=== PATIENT | female | born 1995 | race Caucasian/White ===

== ENCOUNTER 2017-08-26 18:31 | Emergency (ER) | payer MEDICAID, OTHER ==
[2017-08-26 18:39] VITALS: BP 118/85
--- NOTE | 2017-08-26 18:49 | ED Physician Documentation ---
PD HPI HEENT FB - Chief complaint Chief Complaint: Heent - History obtained from History obtained from: Patient - History of Present Illness Timing - onset: Other (About a month ago she developed a sore in her nares, it has spread since then to the left ear. 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 : None HEENT: None Psych: None Musculoskeletal: None Derm: None - Past Surgical History Past Surgical History: No - Present Medications Home Medications: Ambulatory Orders Medication Instructions Recorded Confirmed HYDROcod/ACETAM 5/325 [Novice 5/325] 1 - 2 ea PO Q6H PRN #7 tablet 08/26/17 Sulfamethoxazole/Trimethoprim 1 each PO BID 10 Days tablet 08/26/17 [Sulfamethoxazole-Tmp Ds Tablet] - Allergies Allergies/Adverse Reactions: Allergies Allergy/AdvReac Type Severity Reaction Status Date / Time No Known Drug Allergies Allergy Verified 09/03/15 17:38 - Social History Does the pt smoke?: Yes Smoking Status: Current every day smoker Does the pt drink ETOH?: No Does the pt have substance abuse?: Yes - Immunizations Immunizations are current?: Yes - POLST Patient has POLST: No PD ED PE NORMAL - Vitals Vital signs reviewed: Yes - General General: Alert and oriented X 3, No acute distress - HEENT HEENT: Other (There is a small sore on the left nares internally, the bulk of the external part of the left ear is kind of denuded with some purulent drainage , no lymphadenopathy.) - Neck Neck: Supple, no meningeal sign, No bony TTP, No adenopathy - Neuro Neuro: Alert and oriented X 3, Normal speech - Psych Psych: Normal mood, Normal affect Results - Vitals Vitals: Vital Signs - 24 hr 08/26/17 18:34 Temperature 37.4 C Heart Rate 106 H Respiratory 16 Rate Blood Pressure 118/85 H O2 Saturation 100 Oxygen O2 Source Room air - Labs Labs: Laboratory Tests 08/26/17 18:52 Urine Color YELLOW Urine Clarity CLOUDY Urine pH 7.0 Ur Specific [place] 1.020 Urine Protein NEGATIVE Urine Glucose (UA) NEGATIVE Urine Ketones NEGATIVE Urine Occult Blood NEGATIVE Urine Nitrite NEGATIVE Urine Bilirubin NEGATIVE Urine Urobilinogen 0.2 (NORMAL) Ur Leukocyte Esterase SMALL H Ur Microscopic Review INDICATED Urine Culture Comments Not Reportable Urine HCG, Qual NEGATIVE Departure - Departure Disposition: 01 Home, Self Care Clinical Impression: Facial cellulitis Condition: Good Record reviewed to determine appropriate education?: Yes Instructions: Cellulitis Dc Prescriptions: HYDROcod/ACETAM 5/325 [Novice 5/325] 1 - 2 ea PO Q6H PRN #7 tablet PRN Reason: Pain Sulfamethoxazole/Trimethoprim [Sulfamethoxazole-Tmp Ds Tablet] 1 each PO BID 10 Days tablet Comments: We are performing a wound culture, the results should be done in 48-72 hours. If antibiotic change is necessary we will call you. Return if worse in the meantime, especially if you develop increased pain, fevers, cannot keep down the medication. Otherwise follow-up with your physician in approximately 2-3 days[address] not drink or drive while taking narcotic pain medication. Note that many narcotic pain relievers also contain Tylenol/acetaminophen. Please ensure that your total dose of acetaminophen from all sources does not exceed 3 g (3000 mg) per day. You may get constipated while on this medication. Take a stool softener such as Colace twice a day while you are on it. Also add an [id number]-zyzapgm laxative such as senna or MiraLAX on any day that you do not have a bowel movement. If you received a narcotic pain medication or sedative while in the emergency department, do not drive for the next 24 hours.
[2017-08-26 18:56] LABS: BILIRUBIN,URINE NEGATIVE (NEGATIVE); GLUCOSE, URINE (UA) NEGATIVE (NEGATIVE); KETONES,URINE (UA) NEGATIVE (NEGATIVE); LEUKOCYTE ESTERASE, URINE SMALL (NEGATIVE); NITRITE,URINE NEGATIVE (NEGATIVE); OCCULT BLOOD,URINE NEGATIVE (NEGATIVE); PROTEIN,URINE NEGATIVE (NEGATIVE); UROBILINOGEN,URINE 0.2 (NORMAL) E.U./dL (NORMAL)
[2017-08-26 19:01] LABS: CLARITY,URINE CLOUDY (CLEAR)
[2017-08-26 19:02] LABS: HCG UR QUAL NEGATIVE
[2017-08-26 19:21] LABS: AMORPHOUS SEDIMENT,UR Marked /LPF; BACTERIA,URINE Rare /HPF (None Seen); RBC,URINE None Seen /HPF (0-5); SQUAMOUS EPITHELIAL CELL,UR MANY Squamous (<= Few)
== END 2017-08-26 19:11 | disposition home or self-care (01) ==
LOC: ED 18:31
DX: L03.211 Cellulitis of face (principal); F17.200 Nicotine dependence, unspecified, uncomplicated
CPT/HCPCS: 81001; 81003; 81025; 87070; 87086; 87205; 99283

== ENCOUNTER 2017-10-22 12:12 | Emergency (ER) | payer MEDICAID ==
--- NOTE | 2017-10-22 14:33 | ED Physician Documentation ---
PD HPI SKIN - Stated complaint Stated Complaint: Wound check - Chief complaint Chief Complaint: General - History obtained from History obtained from: Patient - History of Present Illness Timing - duration: Weeks (1) Timing - details: Gradual onset Location: Face Quality / character: Painful, Discolored Similar symptoms before: Diagnosis (Staph infection) - Additional information Additional information: The patient is a 21-year-old female who presents with a sore on the left corner of her mouth stating, "I think it's Staph again." She first noticed the sore one week ago and has persisted since that time. 2 months ago she was treated with trimethoprim/sulfamethoxazole for infection involving her nares and left external ear, and a culture subsequently grew methicillin sensitive staph aureus. She denies fever, sore throat, or cough. 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 : None HEENT: None Psych: None Musculoskeletal: None Derm: None - Past Surgical History Past Surgical History: No - Present Medications Home Medications: Ambulatory Orders Medication Instructions Recorded Confirmed Mupirocin 22 gm TP BID #1 tube 10/22/17 - Allergies Allergies/Adverse Reactions: Allergies Allergy/AdvReac Type Severity Reaction Status Date / Time No Known Drug Allergies Allergy Verified 10/22/17 12:16 - Social History Does the pt smoke?: Yes Smoking Status: Current every day smoker Does the pt drink ETOH?: No Does the pt have substance abuse?: Yes - Immunizations Immunizations are current?: Yes - POLST Patient has POLST: No PD ED PE NORMAL - Vitals Vital signs reviewed: Yes (borderline hypertension.) - General General: Alert and oriented X 3, Well developed/nourished - HEENT HEENT: Atraumatic, EOMI, Ears normal, Moist mucous membranes, Pharynx benign, Other (There is a single erythematous sore at the left corner of the mouth, on the cutaneous aspect. It is mildly tender to palpation, without swelling.) - Neck Neck: Supple, no meningeal sign, No adenopathy - Cardiac Cardiac: RRR - Respiratory Respiratory: No respiratory distress - Derm Derm: Other (see above.) - Neuro Neuro: Alert and oriented X 3, Normal speech Results - Vitals Vitals: Oxygen O2 Source Room air PD MEDICAL DECISION MAKING - ED course Complexity details: reviewed old records, considered differential, d/w patient ED course: The patient's presentation is consistent with recurrent staph skin infection. It is a small area that should be amenable to topical antibiotic therapy. I do not think oral antibiotics aren't clinically indicated. She is being discharged with a prescription for mupirocin ointment. I discussed with her the expected course of illness, topical antibiotic treatment and outpatient follow-up, as well as potentially worrisome signs or symptoms that should prompt reevaluation in the emergency department. - Sepsis Event Vital Signs: Oxygen O2 Source Room air Departure - Departure Disposition: 01 Home, Self Care Clinical Impression: Staph skin infection Condition: Stable Instructions: ED Staph Infec Abx Tx Only Prescriptions: Mupirocin 22 gm TP BID #1 tube Comments: Apply mupirocin ointment to the infected area twice daily. Follow up with your primary physician within 1-2 weeks. Call to schedule appointment. Return to the emergency department if increasing swelling, abscess formation, or otherwise worsening symptoms. Discharge Date/Time: 10/22/17 14:41
[2017-10-22 14:42] VITALS: BP 130/78
== END 2017-10-22 14:41 | disposition home or self-care (01) ==
LOC: ED 12:12
DX: L08.89 Other specified local infections of the skin and subcutaneous tissue (principal); B95.8 Unspecified staphylococcus as the cause of diseases classified elsewhere; F17.200 Nicotine dependence, unspecified, uncomplicated
CPT/HCPCS: 99283

== ENCOUNTER 2019-10-22 16:33 | Outpatient (CLI) | payer MEDICAID ==
--- NOTE | 2019-10-22 17:17 | Ultrasound Report ---
PROCEDURE: OB First Trimester INDICATIONS: POSITIVE PRAGNANCY TEST OUTSIDE/PRIOR DATING DATA: Last menstrual period (LMP): 09/03/2019. LMP-based estimated date of delivery (MICHAEL): 06/09/2020. First dating scan (date and location): 10/22/2019. Estimated date of delivery (MICHAEL) from first dating scan: 06/11/2020. TECHNIQUE: Real-time scanning was performed of the fetus and maternal pelvic organs, with image documentation. COMPARISON: None FINDINGS: Embryo: Single intrauterine gestational sac is seen with fetus and yolk sac seen. [place]-rump length measures 8 mm. Estimated gestational age is 6 weeks 5 days. heart rate is 142 bpm. There is no perigestational hemorrhage. Measurement variability in dating: +/- 4 weeks by LMP, +/- 7 days by mean sac diameter (use before 6 weeks gestation if crown-rump length not able to be measured), +/- 5 days by crown-rump length (6-12 weeks gestation). Maternal organs: 1.3 x 1.4 x 1.2 cm corpus luteum is seen in left ovary. Limited images through the k idneys demonstrate no hydronephrosis. IMPRESSION: 1. Single live intrauterine with fetus and yolk sac seen. heart rate is 142 bpm. Missy mated gestational age is 6 weeks 5 days. 2. Corpus luteum in left ovary as above. Reviewed by: Chalino Begum MD on 10/22/2019 5:16 PM PDT Approved by: Chalino Begum MD on 10/22/2019 5:16 PM PDT Station ID: [id number]
== END 2019-10-22 16:34 | disposition home or self-care (01) ==
LOC: DI 16:33
PROVIDERS: ATTEND Advanced Practice Midwife
DX: O34.80 Maternal care for other abnormalities of pelvic organs, unspecified trimester (principal); N83.12 Corpus luteum cyst of left ovary
CPT/HCPCS: 76801

== ENCOUNTER 2019-11-14 10:30 | Outpatient (CLI) | payer MEDICAID ==
[2019-11-14 16:49] LABS: BILIRUBIN,URINE NEGATIVE (NEGATIVE); GLUCOSE, URINE (UA) NEGATIVE (NEGATIVE); KETONES,URINE (UA) NEGATIVE (NEGATIVE); LEUKOCYTE ESTERASE, URINE NEGATIVE (NEGATIVE); NITRITE,URINE NEGATIVE (NEGATIVE); OCCULT BLOOD,URINE NEGATIVE (NEGATIVE); PROTEIN,URINE NEGATIVE (NEGATIVE); UROBILINOGEN,URINE 0.2 (NORMAL) E.U./dL (NORMAL)
[2019-11-14 16:56] LABS: CLARITY,URINE CLEAR (CLEAR)
[2019-11-14 16:57] LABS: BACTERIA,URINE None Seen /HPF (None Seen); RBC,URINE None Seen /HPF (0-5); SQUAMOUS EPITHELIAL CELL,UR MANY Squamous (<= Few)
== END 2019-11-14 23:59 | disposition home or self-care (01) ==
LOC: LAB.R 10:30
PROVIDERS: ATTEND Advanced Practice Midwife
DX: Z34.90 Encounter for supervision of normal pregnancy, unspecified, unspecified trimester (principal); Z36.89 Encounter for other specified antenatal screening
CPT/HCPCS: 81001; 87086

== ENCOUNTER 2019-12-24 13:15 | Outpatient (CLI) | payer MEDICAID | END 2019-12-24 13:16 | disposition home or self-care (01) | LOC: LAB 13:15 | PROVIDERS: ATTEND Advanced Practice Midwife | DX: Z53.9 Procedure and treatment not carried out, unspecified reason (principal) ==

== ENCOUNTER 2019-12-26 17:53 | Outpatient (CLI) | payer MEDICAID ==
[2019-12-26 18:20] LABS: BASOPHILS # (AUTO) 0.1 10^3/uL (0.0-0.1); BASOPHILS % (AUTO) 0.4 %; EOSINOPHILS # (AUTO) 0.1 10^3/uL (0.0-0.7); EOSINOPHILS % (AUTO) 0.6 %; HGB - HEMOGLOBIN 11.1 g/dL (12.0-16.0); LYMPHOCYTES # (AUTO) 3.5 10^3/uL (1.5-3.5); LYMPHOCYTES % (AUTO) 27.4 %; MEAN CORPUSCULAR HEMOGLOBIN 32.3 pg (27.0-31.0); MEAN CORPUSCULAR VOLUME 94.8 fL (81.0-99.0); MEAN PLATELET VOLUME 9.1 fL (7.9-10.8); MONOCYTES # (AUTO) 0.6 10^3/uL (0.0-1.0); MONOCYTES % (AUTO) 4.9 %; NEUTROPHILS # (AUTO) 8.5 10^3/uL (1.5-6.6); NEUTROPHILS % (AUTO) 66.2 %; PLT - PLATELET COUNT 285 10^3/uL (130-450); RED BLOOD COUNT 3.44 10^6/uL (4.20-5.40); RED CELL DISTRIBUTION WIDTH 12.1 % (12.0-15.0); WHITE BLOOD COUNT 12.9 x10^3/uL (4.8-10.8)
[2019-12-27 10:45] LABS: HIV AG/AB 4TH GEN NON-REACTIVE (NON-REACTIVE)
[2019-12-27 15:27] LABS: HEPATITIS B SURFACE ANTIGEN NON-REACTIVE (NON-REACTIVE); HEPATITIS C ANTIBODY NON-REACTIVE (NON-REACTIVE)
== END 2019-12-26 17:54 | disposition home or self-care (01) ==
LOC: LAB 17:53
PROVIDERS: ATTEND Advanced Practice Midwife
DX: Z34.90 Encounter for supervision of normal pregnancy, unspecified, unspecified trimester (principal); Z36.89 Encounter for other specified antenatal screening
CPT/HCPCS: 81511; 81599; 84443; 85025; 86592; 86762; 86803; 86850; 86900; 86901; 87340; 87389

== ENCOUNTER 2020-01-10 14:58 | Outpatient (CLI) | payer MEDICAID ==
--- NOTE | 2020-01-11 16:23 | Ultrasound Report ---
PROCEDURE: OB Detailed Eval INDICATIONS: OUTSIDE/PRIOR DATING DATA: Last menstrual period (LMP): 09/03/2019 LMP-based estimated date of delivery (MICHAEL): 06/09/2020. First dating scan (date and location): 10/22/2019. Estimated date of delivery (MICHAEL) from first dating scan: 06/11/2020. TECHNIQUE: Real-time scanning was performed of the fetus, with image documentation and biometric measurements. Endovaginal scanning: Not performed COMPARISON: 10/22/2019 FINDINGS: General: A single living intrauterine gestation is present. Presentation: Cephalic Placenta: Placental position is anterior, without previa. Amniotic fluid index: 11.5 cm, 25th percentile for gestational age. Largest vertical pocket measur ed 3.5 cm. heart rate: 143 beats per minute. Maternal cervical canal: 3.4 cm long; normal length is 2.5 cm or more. biometrics: Biparietal diameter: 4.27 cm, correlating with 18 weeks and 6 days Head circumference: 16.01 cm, correlating with 18 weeks and 6 days Abdominal circumference: 13.42 cm, correlating with 18 weeks and 6 days Femur length: 2.89 cm, correlating with 18 weeks and 6 days Estimated gestational age from initial scan: not applicable. Composite gestational age from present scan: 18 weeks and 6 days Estimated weight and percentile: 263 g which [address] the fetus within the 87th percentile based on gestational age. Measurement variability in biometric dating: +/- 10 days from 12-20 weeks gestation, +/- 2 weeks from 20-30 weeks gestation, +/- 3 weeks at 30 weeks gestation or later. Anatomic survey: Neuro: Ventricles are normal at less than 10 mm. Cisterna magna is normal at 3-11 mm. Cerebellum i s normal in size and morphology. Nuchal skin fold: Normal at less than 6 mm between 14 and 20 weeks gestational age. Face: Nose and lips, facial profile are normal. Spine: No evidence for spina bifida. Heart: 4-chambered heart is present, with normal ventricular outflow tracts. There is a tiny echoge matt focus identified within the left ventricle. Diaphragm: Diaphragm is intact. Stomach: Left-sided stomach is present. Kidneys: No hydronephrosis. Normal is less than 5 mm in 2nd trimester, less than 7 mm in 3rd trimester. Cord: 3 vessel cord has orthotopic insertion. Bladder: Normal in size. Extremities: All 4 extremities are visualized. IMPRESSION: 1. Single living intrauterine gestation with an estimated sonographic gestational age of approximatel y 18 weeks and 6 days. Expected interval growth has occurred. 2. Estimated weight of approximately 260 g which [address] the fetus within the 87th percentile ba sed off gestational age. 3. Small echogenic focus within the left ventricle which is a nonspecific finding and can be seen in to 20% of normal fetuses. This may represent the normal papillary muscle or cordae tendineae. Recomme nd correlation with maternal risk factors and further evaluation as clinically appropriate. Otherwise , unremarkable routine second trimester anatomic screening survey. Reviewed by: Tello Cole MD on 01/11/2020 4:22 PM PDT Approved by: Tello Cole MD on 01/11/2020 4:22 PM PDT Station ID: [id number]
== END 2020-01-10 14:59 | disposition home or self-care (01) ==
LOC: DI 14:58
PROVIDERS: ATTEND Advanced Practice Midwife
DX: Z34.90 Encounter for supervision of normal pregnancy, unspecified, unspecified trimester (principal); Z36.89 Encounter for other specified antenatal screening
CPT/HCPCS: 76811

== ENCOUNTER 2020-03-15 16:02 | Outpatient (CLI) | payer MEDICAID ==
[2020-03-15 17:40] LABS: HGB - HEMOGLOBIN 10.6 g/dL (12.0-16.0); MEAN CORPUSCULAR HEMOGLOBIN 32.2 pg (27.0-31.0); MEAN CORPUSCULAR VOLUME 97.6 fL (81.0-99.0); MEAN PLATELET VOLUME 9.2 fL (7.9-10.8); RED BLOOD COUNT 3.29 10^6/uL (4.20-5.40); RED CELL DISTRIBUTION WIDTH 12.7 % (12.0-15.0); WHITE BLOOD COUNT 16.1 x10^3/uL (4.8-10.8)
== END 2020-03-15 16:03 | disposition home or self-care (01) ==
LOC: LAB 16:02
PROVIDERS: ATTEND Advanced Practice Midwife
DX: Z34.90 Encounter for supervision of normal pregnancy, unspecified, unspecified trimester (principal)
CPT/HCPCS: 36415; 82950; 85027; 86850

== ENCOUNTER 2020-05-14 08:00 | Outpatient (CLI) | payer MEDICAID | END 2020-05-14 23:59 | disposition home or self-care (01) | LOC: LAB.R 08:00 | PROVIDERS: ATTEND Advanced Practice Midwife | DX: Z34.90 Encounter for supervision of normal pregnancy, unspecified, unspecified trimester (principal); Z36.85 Encounter for antenatal screening for Streptococcus B | CPT/HCPCS: 87797 ==

== ENCOUNTER 2020-06-10 07:32 | Inpatient (IN) | payer MEDICAID ==
[2020-06-10] MEDS ORDERED: ONDANSETRON 4 MG/2 ML VIAL IVP PRN ×2 (08:13→11:15)
[2020-06-10] MEDS ORDERED: LIDOCAINE-MPF 1% 30 ML VIAL ID PRN (08:13)
[2020-06-10] MEDS ORDERED: SODIUM CHLORIDE FLUSH 0.9% 10 ML SYRINGE IVP PRN (08:13)
[2020-06-10] MEDS ORDERED: CARBOPROST TROMETHAMINE 250 MCG/ML AMP IM PRN (08:13)
[2020-06-10] MEDS ORDERED: fentaNYL 100 MCG/2 ML VIAL IVP PRN (08:13)
[2020-06-10] MEDS ORDERED: miSOPROStoL 200 MCG TABLET BC PRN (08:13)
[2020-06-10] MEDS ORDERED: OXYTOCIN 10 UNIT/ML VIAL IM PRN (08:13)
[2020-06-10] MEDS ORDERED: METHYLERGONOVINE 0.2 MG/ML VIAL IM PRN (08:13)
[2020-06-10] MEDS ORDERED: OXYTOCIN/SODIUM CHLORIDE 500 ML IV PRN (08:13)
[2020-06-10] MEDS ORDERED: TRANEXAMIC ACID IN NACL 1,000 MG/100 ML BAG IV PRN (08:13)
[2020-06-10] MEDS ORDERED: METOCLOPRAMIDE 10 MG/2 ML VIAL IVP PRN ×2 (08:13→11:15)
[2020-06-10] MEDS: SODIUM CHLORIDE FLUSH 0.9% 10 ML SYRINGE IVP SCH ×2 (08:45→09:22)
[2020-06-10 08:46] LABS: BASOPHILS # (AUTO) 0.1 10^3/uL (0.0-0.1); BASOPHILS % (AUTO) 0.3 %; EOSINOPHILS # (AUTO) 0.1 10^3/uL (0.0-0.7); EOSINOPHILS % (AUTO) 0.4 %; HGB - HEMOGLOBIN 12.4 g/dL (12.0-16.0); LYMPHOCYTES % (AUTO) 12.6 %; MEAN CORPUSCULAR HEMOGLOBIN 32.3 pg (27.0-31.0); MEAN CORPUSCULAR HGB CONC 34.3 g/dL (32.0-36.0); MEAN PLATELET VOLUME 10.7 fL (7.9-10.8); NEUTROPHILS # (AUTO) 12.9 10^3/uL (1.5-6.6); PLT - PLATELET COUNT 292 10^3/uL (130-450); RED BLOOD COUNT 3.84 10^6/uL (4.20-5.40); RED CELL DISTRIBUTION WIDTH 12.9 % (12.0-15.0); WHITE BLOOD COUNT 16.1 x10^3/uL (4.8-10.8)
--- NOTE | 2020-06-10 08:49 | HISTORY & PHYSICAL EXAMINATION ---
Admit History - Visit Reason Visit Reason: Bloody show - : 1 Parity: 0 Premature: 0 Ectopic: 0 : 0 Care: positive: Other ([facility]) Risk/History: positive: None Complications This : positive: Placental abruption (rule out vs. bloody show) Smoking Status: Current every day smoker - Mother's Labs Mother's Blood Type: positive: O Mother's RH: positive: Negative GBS: positive: Group B Step Negative Rubella Status: positive: Immune - Other Maternal History Other Maternal History: -24yo at 40.1 wks gestation who presents to Labor and Delivery with three days of vomiting, intermittent contractions, then yesterday had the onset of vaginal bleeding. She has had multiple episodes which she reports as bright red and heavy like a period. She called this morning and was encouraged to present. -Reports movement -Denies ctx/LOF - care with [facility] which has been adequate - Complications *None -Dating Criteria *Initial U/S: at 7.0wks c/w LMP for MICHAEL of 06/23/2020 -OB Hx *G1: current -Medications * vitamin-daily *Fe 325mg daily -Allergies *NKDA *Seasonal Allergies *Fruit- some throat itching -Medical History *Depression/Anxiety -Surgical History *None -Family History *Mother- hx of thyroid disorder and depression -Social History *Non contributory - Labs, Immunizations, and Findings Initial U/S: at 7.0wks c/w LMP for MICHAEL of 06/23/2020 O NEG/Rubella immune Rhogam- 03/19/2020 Gentic testing: QUAD-neg FAS: Placenta anterior. YOSELYN 25%. EFW 87%. 3VC. Small echogenic focus in left ventricle (Quad neg). Glucola- 107 antibody neg- (in [employer]) TDAP 04/02/2020 GBS Negative @ 36.2wks HSV: denies self and partner Breast pump Rx 03/05/2020 MOD: . FOB: Ricki. Baby BOY: Dax Pina (Richelle Hurtado); desires epidural pp contraception: POPs and/or condoms, then Nuvaring when 6months. PAP: 11/14/2019- neg -SVE 2/-1/mid/soft/intact; bloody show on exam, brownish red, scant -Vertex by digital exam -EFW by jean-claude'lloyd Bass# -FHTs per flowsheet -Assessment *24yo at 40.1wks gestation who presents with vaginal bleeding *Bloody show vs placental abruption- MD consulted for plan of care *IOL indicated. Discussed with patient and FOB-accepting of plan. *[place] Score 9- appropriate for Pitocin induction * Heart Tones- Category I -Plan *Admit L&D *Induction with Pitocin per protocol *Monitoring- Continuous *Close monitoring of vaginal bleeding *Comfort measures available- position changes, whirlpool tub, fentanyl, and epidural per maternal preference *Diet/Activity- per maternal preference *Anticipate Meds/Allgy - Home Medications Home Medications: Ambulatory Orders Medication Instructions Recorded Confirmed Mupirocin 22 gm TP BID #1 tube 10/22/17 - Allergies Allergies/Adverse Reactions: Allergies Allergy/AdvReac Type Severity Reaction Status Date / Time No Known Drug Allergies Allergy Verified 10/22/17 12:16 Review of Systems - Gastrointestinal Gastrointestinal: reports: Nausea, Vomiting - Psychiatric Psychiatric: reports: Other (nervous mental state r/t nausea, vaginal bleeding, and anticipated delivery discomforts) - All Other Systems All Other Systems: reports: Reviewed and negative Physical - Abdominal Exam Vital Signs: Temp Pulse Resp BP Pulse Ox 36.7 C 73 17 130/80 100 06/10/20 07:55 06/10/20 07:55 06/10/20 07:55 06/10/20 07:55 06/10/20 07:55 Contraction Frequency (min/apart): 4-6 Contraction Intensity: positive: Mild to moderate Uterine Resting Tone: positive: Soft - Monitoring Heart Rate Baseline: 130 Strip Review: positive: Category I (moderate variability, accels, no decels) - Presentation Presentation: positive: Vertex - Vaginal Exam Membranes: positive: Membranes intact Dilation (in cm): 2 Effacement (%): 80 Station: positive: -1 Cervical Position: positive: Midposition Plan for Labor - Plan For Labor I expect patient to be DC'd or transferred within 96 hours.: Yes
[2020-06-10] MEDS: LACTATED RINGERS 1,000 ML IV SCH ×2 (08:52→12:08)
[2020-06-10 08:55] LABS: ALBUMIN 3.3 g/dL (3.2-5.5); BILIRUBIN,TOTAL 1.3 mg/dL (0.2-1.0); CALCIUM 8.7 mg/dL (8.5-10.3); CREATININE 0.7 mg/dL (0.4-1.0); TOTAL PROTEIN 6.5 g/dL (6.7-8.2)
[2020-06-10] MEDS ORDERED: OXYTOCIN/SODIUM CHLORIDE 500 ML IV SCH (09:00)
[2020-06-10] MEDS ORDERED: FAMOTIDINE 20 MG/2 ML VIAL IVP SCH (09:00)
[2020-06-10] MEDS ORDERED: ROPIVACAINE 0.2% 200 MG/100 ML BAG EP ONE (10:52)
[2020-06-10] MEDS ORDERED: ROPIVACAINE 0.2% 200 MG/100 ML BAG EP PRN (11:04)
[2020-06-10 11:10] LABS: CREATININE,URINE 314.2 mg/dL; PROTEIN/CREATININE RATIO,URINE 0.2 (<=0.2)
[2020-06-10] MEDS ORDERED: diphenhydrAMINE INJ 50 MG/ML VIAL IVP PRN (11:15)
[2020-06-10] MEDS ORDERED: NALOXONE 0.4 MG/ML VIAL IVP PRN (11:15)
[2020-06-10] MEDS ORDERED: NALBUPHINE 10 MG/ML AMP IVP PRN (11:15)
[2020-06-10] MEDS ORDERED: ePHEDrine 50 MG/ML VIAL IVP PRN (11:15)
--- NOTE | 2020-06-10 11:15 | ANESTHESIA ---
Pre-Anesthesia VS, & Labs - Diagnosis active labor - Procedure labor epidural Vital Signs: Temp Pulse Resp BP Pulse Ox 36.7 C 72 17 127/85 H 100 06/10/20 09:48 06/10/20 09:48 06/10/20 09:48 06/10/20 09:48 06/10/20 07:55 Height: 5 ft 6 in Weight (kg): 73.9 kg Body Mass Index: 26.3 BMI Classification: Overweight - Is Patient ?: Yes - Lab Results Current Lab Results: Laboratory Tests 06/10/20 08:25: Lipase 53 H 06/10/20 08:25: Sodium 136, Potassium 3.2 L, Chloride 100 L, Carbon Dioxide 19 L , Anion Gap 17.0 H, BUN 8, Creatinine 0.7, Estimated GFR (MDRD) 102, Glucose 78, Calcium 8.7, Total Bilirubin 1.3 H, AST 131 H, ALT 113 H, Alkaline Phosphatase 287 H, Total Protein 6.5 L, Albumin 3.3, Globulin 3.2, Albumin/Globulin Ratio 1.0 06/10/20 08:25: WBC 16.1 H, RBC 3.84 L, Hgb 12.4, Hct 36.1 L, MCV 94.0, MCH 32.3 H, MCHC 34.3, RDW 12.9, Plt Count 292, MPV 10.7, Neut # (Auto) 12.9 H, Lymph # (Auto) 2.0, [place] # (Auto) 1.0, Eos # (Auto) 0.1, Baso # (Auto) 0.1, Absolute Nucleated RBC 0.00, Nucleated RBC % 0.0 Fish Bones: 06/10/20 08:25 06/10/20 08:25 Home Medications and Allergies Active Medications Carboprost Tromethamine (Carboprost Tromethamine 250 Mcg/Ml Amp) 250 mcg IM Q15M PRN PRN Reason: Step 4: Hemorrhage protocol Stop: 06/15/20 08:14 Famotidine (Famotidine 20 Mg/2 Ml Vial) 20 mg IVP BID RUSLAN Last Admin: 06/10/20 09:23 Dose: 20 mg Documented by: Fentanyl (Fentanyl 100 Mcg/2 Ml Vial) 50 mcg IVP Q1H PRN PRN Reason: PAIN Lactated Ringer's (Lr) 1,000 mls @ 150 mls/hr IV .Q6H40M [facility] Last Admin: 06/10/20 08:52 Dose: 150 mls/hr Documented by: Oxytocin/Sodium Chloride (Pitocin/Sodium Chloride) 500 mls @ 999 mls/hr IV PRN PRN; Protocol PRN Reason: POST- HEMORR PREVENTION Stop: 06/15/20 08:14 Tranexamic Acid (Tranexamic 1,000 Mg/100ml-Nacl) 1,000 mg in 100 mls @ 600 mls/hr IV .ONCE PRN PRN Reason: EBL >1200mL and within 3hr Stop: 06/15/20 08:14 Oxytocin/Sodium Chloride (Pitocin/Sodium Chloride) 500 mls @ 1 mls/hr IV TITR RUSLAN; Protocol Last Admin: 06/10/20 09:27 Dose: 1 milliunit/min, 1 mls/hr Documented by: Lidocaine HCl (Lidocaine-Mpf 1% 30 Ml Vial) 30 ml ID .ONCE PRN PRN Reason: PERINEAL REPAIR Stop: 06/15/20 08:14 Methylergonovine Maleate (Methylergonovine 0.2 Mg/Ml Vial) 0.2 mg IM .ONCE PRN PRN Reason: Step 2: Hemorrhage protocol Stop: 06/15/20 08:14 Metoclopramide HCl (Metoclopramide 10 Mg/2 Ml Vial) 10 mg IVP Q6H PRN PRN Reason: Nausea / Vomiting Misoprostol (Misoprostol 200 Mcg Tablet) 800 mcg BC .ONCE PRN PRN Reason: Step 3: Hemorrhage protocol Stop: 06/15/20 08:14 Ondansetron HCl (Ondansetron 4 Mg/2 Ml Vial) 4 mg IVP Q4H PRN PRN Reason: Nausea / Vomiting Last Admin: 06/10/20 08:45 Dose: 4 mg Documented by: Oxytocin (Oxytocin 10 Unit/Ml Vial) 10 unit IM .ONCE PRN PRN Reason: Step one: If no IV access Stop: 06/15/20 08:14 Sodium Chloride (Sodium Chloride Flush 0.9% 10 Ml Syringe) 10 ml IVP PRN PRN PRN Reason: NEEDED PER PROVIDER ORDERS Sodium Chloride (Sodium Chloride Flush 0.9% 10 Ml Syringe) 10 ml IVP 0100,0900,1700 [facility] Last Admin: 06/10/20 09:22 Dose: 10 ml Documented by: Allergies/Adverse Reactions: Allergies Allergy/AdvReac Type Severity Reaction Status Date / Time No Known Drug Allergies Allergy Verified 10/22/17 12:16 Anes History & Medical History - Anesthetic History Family history of Anesthesia Complications: Denies Family history of Malignant Hyperthermia: Denies - Medical History Cardiovascular: reports: None Pulmonary: reports: None Gastrointestinal: reports: None Urinary: reports: None Musculoskeletal: reports: None Endocrine/Autoimmune: reports: None Blood Disorders: reports: None Skin: reports: None Smoking Status: Never smoker History of Cancer?: No - Obstetrical History : 1 Parity: 0 Events: positive: None Complications: positive: Placental abruption (rule out vs. bloody show) Exam Dental: WNL Mouth Openin Fingerbreadth Neck Mobility: Normal Thyromental Distance: 4-6 cm Plan Anesthesia Type: Epidural Consent for Procedure(s) Verified and Reviewed: Yes Code Status: Attempt Resuscitation ASA classification: 2-Mild systemic disease Is this case an emergency?: No
--- NOTE | 2020-06-10 12:24 | Ultrasound Report ---
PROCEDURE: Abdomen Limited INDICATIONS: elevated LFT TECHNIQUE: Real-time focused scanning was performed of the abdomen, with image documentation. COMPARISON: None FINDINGS: The liver is normal in size measuring 16.3 cm. There is a slightly coarse in echotexture with promine nce of the periportal fat. No focal abnormality. The gallbladder is unremarkable in appearance without evidence of stone or pericholecystic fluid. Gal lbladder wall is within normal limits at 3 mm. Negative sonographic Alexis's sign reported by the chucho hnologist. The common bile duct is within normal limits measuring 3 mm. The imaged portions of the proximal and pancreas are within normal limits. The right kidney measures 11.0 cm. There is dilation of the calyces and renal pelvis consistent with at least moderate hydronephrosis. heart rate measures 133 bpm. IMPRESSION: Somewhat coarsened liver echotexture with prominence of the periportal fat is nonspecific but may rep resent diffuse liver disease such as hepatitis. Moderate right-sided hydronephrosis. heart rate measures 133 bpm. Reviewed by: Arnoldo Vasquez DO on 06/10/2020 11:22 AM [facility] Approved by: Arnoldo Vasquez DO on 06/10/2020 11:22 AM [facility] Station ID: [id number]
[2020-06-10] MEDS ORDERED: TERBUTALINE 1 MG/ML VIAL SUBQ ONE ×2 (14:07→14:27)
[2020-06-10] MEDS ORDERED: LIDOCAINE-PF 2% 10 ML AMP SUBQ ONE (14:49)
[2020-06-10] MEDS ORDERED: HYDROCORTISONE 1% CREAM 28 GM TUBE PR PRN (15:40)
[2020-06-10] MEDS ORDERED: WITCH HAZEL/GLYCERIN 1 PAD TOP PRN (15:40)
[2020-06-10] MEDS ORDERED: IBUPROFEN 600 MG TABLET PO SCH (16:00)
[2020-06-10] MEDS ORDERED: ACETAMINOPHEN 500 MG TABLET PO SCH (16:00)
--- NOTE | 2020-06-10 16:01 | DELIVERY NOTE ---
Delivery Note - Labor Labor: positive: Augmented by oxytocin - Delivery Method Delivery Method: positive: Spontaneous vaginal delivery - Presentation Presentation: positive: Vertex, Compound, WOLF - left occiput anterior - Nuchal Cord Nuchal Cord: positive: None (true knot noted in cord) - Anesthetic Anesthetic Type: - Amniotic Fluid Description Amniotic Fluid Description: positive: Light meconium - Episiotomy Type Episiotomy Type: positive: None - Laceration Laceration: positive: None - Delivery Outcome Delivery Outcome: positive: Livebirth - : positive: Placed in direct skin contact with mother, Stimulated, [place] used, Warmer used, Other (Resuscitation indicated) sex: positive: Male : 3 : 8 - Cord Cord: positive: 3 vessels - Placenta Placenta: positive: Intact, Spontaneous (to pathology) - Estimated Blood Loss Estimated Blood Loss (in cc): 150 - Post Delivery Events Post Delivery Events: positive: No post delivery events - Delivery Comments (Free Text/Narrative) Delivery Comments (Free Text/Narrative): Note: Labor: This 24 year old, , @40.1wks gestation by 7.0 week Ultrasound, confirmed by LMP, presented @ 0830 with reports of vaginal bleeding x2 in the last 24 hours. Cervix was 2/80/-1 and vertex. FHR pattern demonstrated 130 baseline in a Category I pattern. Pitocin induction/augmentation with presence of abnormal maternal labs and US. Epidural placed upon maternal request. Moderate variability throughout the day with periods of early/variable intermittent decels that were responsive to maternal position changes. At approximately 1404 a significant decel was noted and pt was found to be complete. Staff to bedside for continued heart rate in the 50s. AROM for meconium stained fluid, moderate volume at 1409. Position changes attempted, and Pitocin turned off at 1412. MD and Peds to bedside at 1413, and at 1415 pt was rolled to the OR. heart rate recovered in OR, so vaginal delivery was appropriate. : of a 2895 gm male on 06/10/2020 @ 1449. Nuchal not present, but true knot noted in cord. The was placed on maternal abdomen, stimulated, dried and sent to the warmer for resuscitation with Peds after cord doubly clamped and cut by SUZE. at one minute was 3 and 8 at five minutes. Pitocin administered via IV for hemostasis. Fundal massage and gentle cord traction applied for active third stage management. Cord blood was obtained. Placenta delivered spontaneously and intact at 1456. Three vessel cord. EBL 150 mL. Fourth Stage: Uterine fundus firm and without excessive bleeding. The perineum, vagina, and cervix were inspected and found to be intact. Placenta sent to pathology. Patient is stable and baby is in nursery under supervision of peds.
--- NOTE | 2020-06-10 16:14 | PROVIDER PROGRESS NOTE ---
Subjective - Prog Note Date Prog Note Date: 06/10/20 Prog Note Time: 16:09 - Subjective Subjective: Dea presented in early labor today with complaints of four days of nausea and vomiting without ability to "keep down" food. She reports only being able to drink sips of gatorade. She has been experiencing vaginal bleeding, which is what prompted her to present. Upon presentation to labor and delivery, bleeding is noted to be wnl for bloody show with appropriate early cervical change CBC- wnl Urine protein:Creatinine- 0.2 BPs wnl Acute Hepatitis Panel- pending CMP: SODIUM 136 mmol/L 135-145 *1 POTASSIUM [L] 3.2 mmol/L 3.5-5.0 *2 CHLORIDE [L] 100 mmol/L 101-111 *3 CARBON DIOXIDE - CO2 [L] 19 mmol/L 21-32 *4 ANION GAP [H] 17.0 6-13 *5 BUN - BLOOD UREA NITROGEN 8 mg/dL 6-20 *6 CREATININE 0.7 mg/dL 0.4-1.0 *7 GFR - MDRD 102 >89 *8 GLUCOSE 78 mg/dL 70-100 *9 CALCIUM 8.7 mg/dL 8.5-10.3 *10 BILIRUBIN,TOTAL [H] 1.3 mg/dL 0.2-1.0 *11 AST ASPARTATE AMINOTRANSFERASE [H] 131 IU/L 10-42 *12 ALT ALANINE AMINOTRANSFERASE [H] 113 IU/L 10-60 *13 ALKALINE PHOSPHATASE [H] 287 IU/L 42-121 *14 TOTAL PROTEIN [L] 6.5 g/dL 6.7-8.2 *15 ALBUMIN 3.3 g/dL 3.2-5.5 *16 GLOBULIN 3.2 g/dL 2.1-4.2 *17 ALBUMIN/GLOBULIN RATIO 1.0 1.0-2.2 *18 ! LIPASE [H] 53 U/L 22-51 *1 US: Abdomen Limited Impression per Radiology: Somewhat coarsened liver echotexture with prominence of the periportal fat is nonspecific but may represent diffuse liver disease such as hepatitis. 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 she is s/p Hep B series, Hep B neg on panel) No evidence of Preeclampsia with BPs wnl, cbc wnl, and Protein/Creatinine wnl P: Continue routine care Await Hepatitis panel Recheck CMP in AM Objective - Vital Signs/Intake & Output Vital Signs: Vital Signs x48h Temp Pulse Resp BP 06/10/20 09:48 36.7 C 72 17 127/85 H Intake & Output: Intake & Output 06/07/20 06/08/20 06/09/20 06/10/20 23:59 23:59 23:59 23:59 Intake Total 490 Output Total 250 Balance 240 - Lab Results Fish Bones: 06/10/20 08:25 06/10/20 08:25 Other Labs: Lab Results x24hrs 06/10/20 06/10/20 06/10/20 Range/Units 10:35 08:25 08:25 WBC (4.8-10.8) x10^3/uL RBC (4.20-5.40) 10^6/uL Hgb (12.0-16.0) g/dL Hct (37.0-47.0) % MCV (81.0-99.0) fL MCH (27.0-31.0) pg MCHC (32.0-36.0) g/dL RDW (12.0-15.0) % Plt Count (130-450) 10^3/uL MPV (7.9-10.8) fL Neut # (Auto) (1.5-6.6) 10^3/uL Lymph # (Auto) (1.5-3.5) 10^3/uL [place] # (Auto) (0.0-1.0) 10^3/uL Eos # (Auto) (0.0-0.7) 10^3/uL Baso # (Auto) (0.0-0.1) 10^3/uL Absolute Nucleated RBC x10^3/uL Nucleated RBC % /100WBC Sodium (135-145) mmol/L Potassium (3.5-5.0) mmol/L Chloride (101-111) mmol/L Carbon Dioxide (21-32) mmol/L Anion Gap (6-13) BUN (6-20) mg/dL Creatinine (0.4-1.0) mg/dL Estimated GFR (MDRD) (>89) Glucose (70-100) mg/dL Calcium (8.5-10.3) mg/dL Total Bilirubin (0.2-1.0) mg/dL AST (10-42) IU/L ALT (10-60) IU/L Alkaline Phosphatase (42-121) IU/L Total Protein (6.7-8.2) g/dL Albumin (3.2-5.5) g/dL Globulin (2.1-4.2) g/dL Albumin/Globulin Ratio (1.0-2.2) Lipase 53 H (22-51) U/L Urine Creatinine 314.2 mg/dL Ur Total Protein Timed 57 mg/dL Protein/Creatinin Ratio 0.2 (<=0.2) Blood Type O NEGATIVE Antibody Screen POSITIVE Antibody Identification See Comments 06/10/20 06/10/20 Range/Units 08:25 08:25 WBC 16.1 H (4.8-10.8) x10^3/uL RBC 3.84 L (4.20-5.40) 10^6/uL Hgb 12.4 (12.0-16.0) g/dL Hct 36.1 L (37.0-47.0) % MCV 94.0 (81.0-99.0) fL MCH 32.3 H (27.0-31.0) pg MCHC 34.3 (32.0-36.0) g/dL RDW 12.9 (12.0-15.0) % Plt Count 292 (130-450) 10^3/uL MPV 10.7 (7.9-10.8) fL Neut # (Auto) 12.9 H (1.5-6.6) 10^3/uL Lymph # (Auto) 2.0 (1.5-3.5) 10^3/uL [place] # (Auto) 1.0 (0.0-1.0) 10^3/uL Eos # (Auto) 0.1 (0.0-0.7) 10^3/uL Baso # (Auto) 0.1 (0.0-0.1) 10^3/uL Absolute Nucleated RBC 0.00 x10^3/uL Nucleated RBC % 0.0 /100WBC Sodium 136 (135-145) mmol/L Potassium 3.2 L (3.5-5.0) mmol/L Chloride 100 L (101-111) mmol/L Carbon Dioxide 19 L (21-32) mmol/L Anion Gap 17.0 H (6-13) BUN 8 (6-20) mg/dL Creatinine 0.7 (0.4-1.0) mg/dL Estimated GFR (MDRD) 102 (>89) Glucose 78 (70-100) mg/dL Calcium 8.7 (8.5-10.3) mg/dL Total Bilirubin 1.3 H (0.2-1.0) mg/dL AST 131 H (10-42) IU/L ALT 113 H (10-60) IU/L Alkaline Phosphatase 287 H (42-121) IU/L Total Protein 6.5 L (6.7-8.2) g/dL Albumin 3.3 (3.2-5.5) g/dL Globulin 3.2 (2.1-4.2) g/dL Albumin/Globulin Ratio 1.0 (1.0-2.2) Lipase (22-51) U/L Urine Creatinine mg/dL Ur Total Protein Timed mg/dL Protein/Creatinin Ratio (<=0.2) Blood Type Antibody Screen Antibody Identification
--- NOTE | 2020-06-10 17:40 | PROVIDER PROGRESS NOTE ---
Subjective - Prog Note Date Prog Note Date: 06/10/20 Prog Note Time: 17:27 - Subjective Pt reports feeling: Improved Subjective: Dea is stabilized after in the OR at 1449. She desires early discharge to be transported with baby to higher level of care. Bleeding is reported by nursing as light to moderate Fundus firm Pitocin dc'd Has not yet urinated PT is O-, baby's blood type is Rh positive- awaiting results Rhogam before discharge Lab slip for CMP, CBC, and lipase to be sent with patient for outpatient follow up of abnormal LFTs Will consider for early discharge Objective - Vital Signs/Intake & Output Vital Signs: Vital Signs x48h Temp Pulse Resp BP 06/10/20 09:48 36.7 C 72 17 127/85 H Intake & Output: Intake & Output 06/07/20 06/08/20 06/09/20 06/10/20 23:59 23:59 23:59 23:59 Intake Total 490 Output Total 250 Balance 240 - Lab Results Fish Bones: 06/10/20 08:25 06/10/20 08:25 Other Labs: Lab Results x24hrs 06/10/20 06/10/20 06/10/20 Range/Units 10:35 08:25 08:25 WBC (4.8-10.8) x10^3/uL RBC (4.20-5.40) 10^6/uL Hgb (12.0-16.0) g/dL Hct (37.0-47.0) % MCV (81.0-99.0) fL MCH (27.0-31.0) pg MCHC (32.0-36.0) g/dL RDW (12.0-15.0) % Plt Count (130-450) 10^3/uL MPV (7.9-10.8) fL Neut # (Auto) (1.5-6.6) 10^3/uL Lymph # (Auto) (1.5-3.5) 10^3/uL [place] # (Auto) (0.0-1.0) 10^3/uL Eos # (Auto) (0.0-0.7) 10^3/uL Baso # (Auto) (0.0-0.1) 10^3/uL Absolute Nucleated RBC x10^3/uL Nucleated RBC % /100WBC Sodium (135-145) mmol/L Potassium (3.5-5.0) mmol/L Chloride (101-111) mmol/L Carbon Dioxide (21-32) mmol/L Anion Gap (6-13) BUN (6-20) mg/dL Creatinine (0.4-1.0) mg/dL Estimated GFR (MDRD) (>89) Glucose (70-100) mg/dL Calcium (8.5-10.3) mg/dL Total Bilirubin (0.2-1.0) mg/dL AST (10-42) IU/L ALT (10-60) IU/L Alkaline Phosphatase (42-121) IU/L Total Protein (6.7-8.2) g/dL Albumin (3.2-5.5) g/dL Globulin (2.1-4.2) g/dL Albumin/Globulin Ratio (1.0-2.2) Lipase 53 H (22-51) U/L Urine Creatinine 314.2 mg/dL Ur Total Protein Timed 57 mg/dL Protein/Creatinin Ratio 0.2 (<=0.2) Blood Type O NEGATIVE Antibody Screen POSITIVE Antibody Identification See Comments 06/10/20 06/10/20 Range/Units 08:25 08:25 WBC 16.1 H (4.8-10.8) x10^3/uL RBC 3.84 L (4.20-5.40) 10^6/uL Hgb 12.4 (12.0-16.0) g/dL Hct 36.1 L (37.0-47.0) % MCV 94.0 (81.0-99.0) fL MCH 32.3 H (27.0-31.0) pg MCHC 34.3 (32.0-36.0) g/dL RDW 12.9 (12.0-15.0) % Plt Count 292 (130-450) 10^3/uL MPV 10.7 (7.9-10.8) fL Neut # (Auto) 12.9 H (1.5-6.6) 10^3/uL Lymph # (Auto) 2.0 (1.5-3.5) 10^3/uL [place] # (Auto) 1.0 (0.0-1.0) 10^3/uL Eos # (Auto) 0.1 (0.0-0.7) 10^3/uL Baso # (Auto) 0.1 (0.0-0.1) 10^3/uL Absolute Nucleated RBC 0.00 x10^3/uL Nucleated RBC % 0.0 /100WBC Sodium 136 (135-145) mmol/L Potassium 3.2 L (3.5-5.0) mmol/L Chloride 100 L (101-111) mmol/L Carbon Dioxide 19 L (21-32) mmol/L Anion Gap 17.0 H (6-13) BUN 8 (6-20) mg/dL Creatinine 0.7 (0.4-1.0) mg/dL Estimated GFR (MDRD) 102 (>89) Glucose 78 (70-100) mg/dL Calcium 8.7 (8.5-10.3) mg/dL Total Bilirubin 1.3 H (0.2-1.0) mg/dL AST 131 H (10-42) IU/L ALT 113 H (10-60) IU/L Alkaline Phosphatase 287 H (42-121) IU/L Total Protein 6.5 L (6.7-8.2) g/dL Albumin 3.3 (3.2-5.5) g/dL Globulin 3.2 (2.1-4.2) g/dL Albumin/Globulin Ratio 1.0 (1.0-2.2) Lipase (22-51) U/L Urine Creatinine mg/dL Ur Total Protein Timed mg/dL Protein/Creatinin Ratio (<=0.2) Blood Type Antibody Screen Antibody Identification
--- NOTE | 2020-06-10 17:40 | PROCEDURE REPORT ---
Hospitalist Procedure Note - Procedure Note Procedure Note: TRAFFIC COORDINATOR Supervision note Called by CNAndra to bedside of patient with FHT in the 50s. Had reviewed care with CNM prior to this: Healthy 24yo G1 at 40w1d who presented with vaginal bleeding like a menses. SVE was 2cm. Pt had experienced days of nausea and vomiting with inability to retain food and so CMP was checked. AST, ALT, bilirubin, and lipase mildly elevated. Patient was without RUQ pain or tenderness. RUQ US obtained and showed a normal gallbladder but a "course echotexture" of the liver possibly c/w diffuse liver disease like hepatitis. Acute hepatitis panel is drawn and pending. Pt has worked at a [employer], no needlesticks, she is s/p hep B vaccination, had normal Hep B screen with NOB labs. Her BPs are normal; no RODRÍGUEZ, visual changes, or upper abd pain; no proteinuria; normal platelets so likely no preeclampsia. With the elevated LFT and cervical dilation, pt agreed to admission and augmentation. There was no abnormal bleeding during her labor. She received pitocin up to 4mU/min, received an epidural, had ruptured for meconium-stained fluid. heart rate tracing was normal category 1 throughout the first stage of her labor with moderate variability and accelerations seen. Around 12:30 developed some early decelerations. Then at about 13:40, she developed changes in her monitoring--with toco not picking up well it is difficult to classify her decelerations, but they were all less than 60sec with christine to no more than 100BPM and there was preservation of moderate variability. CNM checked patient due to the change of monitoring and pt was found to be complete and 0 station. Shortly afterward, FHT dropped to 70, position changes and oxygen and IV fluid bolus were initiated. Tracing was broken but the FHT's appeared to worsen to 50. I was called in at this point and gave a verbal order for terbutaline administration. This had not been given prior to my arrival due to recovery of FHT. Upon my arrival, patient had ended the bradycardic event that lasted for 10min. FHT had improved to 100 and preparations began for possibly performing a vacuum. But then patient had another decel to the 70s shortly after my arrival. OR team called in and patient was transferred to the OR. While patient ultimately had a spontaneous vaginal delivery, we were open for a potential and were ready to perform vacuum PRN. On arrival to OR, doppler FHT were in the 150s. Patient was moved to hands and knees and she was able to support herself in that position. She pushed about twice in that position. She was moved to the OR table into a deep lithotomy position in reverse trendelenberg. She pus hed with each contraction and made excellent continuous descent. Digital exam and US revealed fetus in LONA position. Hanson was removed when the head was at +2 station with pushing. FHT's unable to be picked up on the monitor and so doppler was performed. FHT were 150 between contractions and 110 when pushing. Monitor re-applied later and picked up FHT in 150 dipping down to 110 with pushing. Variablity was minimal. With good expulsive power, normal baseline, variability present, and decel christine still at a normal BPM, assisted delivery was not performed. CNM performed the delivery. Peds and RT were present for delivery. Apgars were 3 at 1min and 8 at 5min. A true knot was observed in the umbilical cord. The placenta was intact and looked smaller than expected. Cord gasses were drawn and showed an arterial pH of 6.98 with a base excess of -19. Baby had persistent TTN and required transport to a NICU facility.
[2020-06-10] MEDS ORDERED: RHO(D) IMMUNE GLOBULIN 300 MCG SYRINGE IM ONE (19:02)
[2020-06-10 19:07] VITALS: BP 118/77
--- NOTE | 2020-06-10 19:14 | Discharge Plan ---
Discharge Plan Problem Reviewed?: Yes Disposition: Home, Self Care Condition: Good Additional Instructions or Follow Up instructions: Follow up with Midwifery at 1 and 6 weeks No Smoking: If you smoke, Please STOP! Call for help. Follow-up with: Cara Duran ARNP [Provider Admit Priv/Credential] -
--- NOTE | 2020-06-10 19:35 | DISCHARGE SUMMARY ---
Discharge Summary Admit Date: 06/10/20 Discharge Date: 06/10/20 Condition at Discharge: Good Discharge Disposition: 01 Home, Self Care - HPI History of Present Illness: Admit Date: 06/10/2020 Discharge Date: 06/10/2020 Labor course: Dea is a 24yo at 40.1 wks by 7.0 week ultrasound who presented following four days of nausea and vomiting and heavy vaginal bleeding twice. Cervix is found to be 2/80/-1 with normal bloody show, intermittent contractions noted. Antiemetics given. Labs drawn. Pt agrees to pitocin augmen tation/induction. Labs were abnormal with significantly elevated LFTs, Lipase elevated at 53, bilirubin elevated at 1.3, and electrolytes slightly low. Acute hepatitis panel ordered. Urine protein/Creatinine- 0.2 and BPs wnl US ordered and noted- possible hepatitis changes. Follow up indicated with labs. Pt progressed to complete and pushing around 1400 at which time significant decelerations were noted. MD and Peds to bedside and decision was made to deliver vaginally in the OR with option for surgical or vacuum assisted delivery ready. : of 2895g male on 06/10/2020 with apgars of 3 and 8 and requiring resuscitation and transfer to higher level NICU facility. Abnormal cord gases. Perineum intact and ebl 150. Placenta delivered spontaneously with true knot noted in umbilical cord. Placenta sent to pathology for evaluation. course: Bleeding wnl, pain well controlled. Pt to discharge to home/to be at baby's bedside at NICU. Discussed bleeding and short interval followup (1 week). Set up with breast pump. Will require Rhogam prior to discharge. Lab slip given for further follow up on abnormal lab and US findings. - ALLERGIES Allergies/Adverse Reactions: Allergies Allergy/AdvReac Type Severity Reaction Status Date / Time No Known Drug Allergies Allergy Verified 10/22/17 12:16 - MEDICATIONS Home Medications: Ambulatory Orders Medication Instructions Recorded Confirmed Mupirocin 22 gm TP BID #1 tube 10/22/17 - LABS Result Diagrams: 06/10/20 08:25 06/10/20 08:25
--- NOTE | 2020-06-10 20:56 | Labor Flowsheet ---
Labor Flowsheet Datetime Report Generated by CPN: 06/10/2020 20:55 Datetime: 06/10/2020 18:44 VITAL SIGNS NBP Sys/Shara/Mean (mmHg): 118 : 77 : 86 Pulse: 80 Datetime: 06/10/2020 16:31 Stage of : Recovery Datetime: 06/10/2020 16:01 Respirations: 16 Temperature Route: Oral PAIN Pain Scale: 4 Pain Type: Dull Pain Location: Back Datetime: 06/10/2020 15:55 SpO2 (%): 100 Datetime: 06/10/2020 15:53 Pain Presence: Constant Datetime: 06/10/2020 15:20 Temperature (C): 36.7 Datetime: 06/10/2020 15:19 LaborFlag: Labor Datetime: 06/10/2020 14:15 COMMUNICATION Communication: Provider at Bedside Communication Comments: dr ten ordered for OR to open and pt and staff went to OR Datetime: 06/10/2020 14:12 MEDICATIONS Pitocin (milliunits): Discontinued Oxygen Amount (LPM): 10 Oxygen Method: Non-Rebreather Datetime: 06/10/2020 14:09 Membrane Status: Ruptured Membranes Rupture Method: Artificial Amniotic Fluid Color: Light Meconium Amniotic Fluid Amount: Moderate Datetime: 06/10/2020 14:07 STAGE 2 Pushing: Urge to Push Pushing Position: Pushing with Contractions Datetime: 06/10/2020 14:02 VAGINAL EXAM Dilatation (cm): 10.0 Effacement (%): 100 Station: 0 Exam by: bonnie Datetime: 06/10/2020 14:00 UTERINE ACTIVITY Monitor Mode: External Frequency (min): 3-4 Quality: Strong Duration (sec): 30-60 Pattern: Normal: <= 5 Contractions in 10 Minutes Resting Tone (Palpate): Relaxed ASSESSMENT A Monitor Mode: Telemetry FHR Baseline Rate : 140 Variability: Moderate 6-25 bpm Accelerations: None Decelerations: Variable Actions for Decelerations: Side to Side Category: Category II Datetime: 06/10/2020 13:34 Monitor Interventions for UA: [place] Adjusted Monitor Interventions for FHR: Ultrasound Adjusted Vaginal Bleeding: Small Patient Position/Activity: Right Lateral Datetime: 06/10/2020 13:15 FHR Baseline Changes: No Baseline Change Datetime: 06/10/2020 11:54 Cervix, Consistency: Soft Cervix, Position: Midposition Datetime: 06/10/2020 11:45 Comments: ultrasound in room, interuppted strip, provider at beside Datetime: 06/10/2020 11:04 Epidural Procedure: Loading Dose Epidural Procedure Other: Pump Started Datetime: 06/10/2020 10:48 PROCEDURE TIME OUT Procedure Verify: Correct Patient Identity; Correct Side and Site are Marked; Accurate Procedure Co nsent Form; Agreement on Procedure to be Done; Correct Patient Position; Addressed Need to Administer Antibiotics or Fluids for Irrigation; Safety Precautions Based on Patient History or Medication Use ANESTHESIA Anesthesia Plans: Epidural Epidural Positioning: Sitting Datetime: 06/10/2020 10:43 Anesthesia Comments: Raisa here for epidural placement Datetime: 06/10/2020 10:36 PATIENT CARE IV/Blood Work: IV Bolus Started Datetime: 06/10/2020 10:27 I/O Interventions: Up to BR Datetime: 06/10/2020 10:19 Pain Coping: Breathing Through Contractions; Requesting Pain Medication or Epidural Datetime: 06/10/2020 09:30 Pitocin Checklist: At Least 1 Acceleration of 15 bpm x 15 Seconds in 30 Minutes or Adequate Variabi lity; No More than 1 Late Deceleration Occurred in Past 30 Minutes; No More than 2 Variable Decelerat ions > 60 Seconds in Duration and decreasing >60 bpm in 30 minutes; No More than 5 Uterine Contractio ns in 10 Minutes for any 20 Minute Interval; Uterus Palpates Soft between Contractions Datetime: 06/10/2020 09:26 Antiemetics/Antacids: Pepcid IV (mg) @ 20
[2020-06-10] MEDS ORDERED: DOCUSATE SODIUM 100 MG CAPSULE PO SCH (21:00)
[2020-06-12 11:47] LABS: HEPATITIS A IGM NON-REACTIVE (NON-REACTIVE); HEPATITIS B SURFACE ANTIGEN NON-REACTIVE (NON-REACTIVE); HEPATITIS C ANTIBODY NON-REACTIVE (NON-REACTIVE)
== END 2020-06-10 20:40 | disposition home or self-care (01) | DRG 807 ==
LOC: WFO 07:32 → FBP 07:35 → WFO 08:12 → FBP 09:06
PROVIDERS: ADMIT Advanced Practice Midwife; ATTEND Advanced Practice Midwife
PROC: 3E033VJ Introduction of Other Hormone into Peripheral Vein, Percutaneous Approach (ICD-10-PCS; 2020-06-10)
PROC: 10E0XZZ Delivery of Products of Conception, External Approach (ICD-10-PCS; principal; 2020-06-10 14:15)
DX: O67.9 Intrapartum hemorrhage, unspecified (principal); Z37.0 Single live birth; O69.1XX0 Labor and delivery complicated by cord around neck, with compression, not applicable or unspecified; O77.0 Labor and delivery complicated by meconium in amniotic fluid; O76 Abnormality in fetal heart rate and rhythm complicating labor and delivery; O75.89 Other specified complications of labor and delivery; Z67.41 Type O blood, Rh negative; R79.89 Other specified abnormal findings of blood chemistry; F17.200 Nicotine dependence, unspecified, uncomplicated; O99.334 Smoking (tobacco) complicating childbirth; Z20.822 Contact with and (suspected) exposure to COVID-19; Z3A.40 40 weeks gestation of pregnancy
CPT/HCPCS: 36415; 76705; 80053; 80074; 82570; 83033; 83690; 84156; 85025; 86850; 86870; 86900; 86901; 87635; 99214; A9270; J7120

== ENCOUNTER 2021-05-13 08:00 | Outpatient (CLI) | payer MEDICAID | END 2021-05-13 23:59 | LOC: LAB.N 08:00 | PROVIDERS: ATTEND Family Medicine | DX: R05.9 Cough, unspecified (principal); R53.83 Other fatigue; Z20.822 Contact with and (suspected) exposure to COVID-19 ==

== ENCOUNTER 2022-11-01 21:15 | Emergency (ER) | payer MEDICAID ==
[2022-11-01] MEDS ORDERED: AMOX/CLAV 875 MG/125 MG TABLET PO STA (22:18)
--- NOTE | 2022-11-01 22:24 | ED Physician Documentation ---
PD HPI HEENT - Stated complaint Stated Complaint: RT FACE SWELLING,PX - Chief complaint Chief Complaint: Heent - History obtained from History obtained from: Patient - Additional information Additional information: Patient is a 26-year-old female presenting for evaluation of right lower dental pain that is been present for 1 week and worsening over the past 2 days with mild associated swelling. She denies any difficulty swallowing or breathing. No fevers. She has not recently seen a dentist. Denies prior history of similar symptoms. 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 : None HEENT: None Psych: None Musculoskeletal: None Derm: None - Past Surgical History Past Surgical History: No - Present Medications Home Medications: Ambulatory Orders Medication Instructions Recorded Confirmed Mupirocin 22 gm TP BID #1 tube 10/22/17 Amox/Clav 875/125 [Augmentin] 1 each PO Q12H #20 tablet 11/01/22 - Allergies Allergies/Adverse Reactions: Allergies Allergy/AdvReac Type Severity Reaction Status Date / Time No Known Drug Allergies Allergy Verified 11/01/22 21:22 - Social History Does the pt smoke?: Yes Smoking Status: Never smoker Does the pt drink ETOH?: No Does the pt have substance abuse?: Yes - Immunizations Immunizations are current?: Yes - POLST Patient has POLST: No PD ED PE NORMAL - General General: Alert and oriented X 3, No acute distress, Well developed/nourished - HEENT HEENT: Atraumatic, PERRL, EOMI, Moist mucous membranes, Pharynx benign, Other (Mild tenderness and swelling to right buccal mucosa with no fluctuance or palpable mass) - Neck Neck: Supple, no meningeal sign - Cardiac Cardiac: RRR - Respiratory Respiratory: No respiratory distress, Clear bilaterally - Neuro Neuro: Normal speech PD ED PE EXPANDED - HEENT HEENT Visual: 1 - deformity Results - Vitals Vitals: Vital Signs - 24 hr 11/01/22 11/01/22 21:22 22:50 Temperature 36.5 C Heart Rate 82 81 Respiratory 16 16 Rate Blood Pressure 130/88 H 130/87 H O2 Saturation 99 100 Oxygen O2 Source Room air PD Medical Decision Making - ED course ED course: Patient is a 26-year-old female presenting for evaluation of dental pain with some mild associated swelling. She is afebrile here with stable vital signs. She is well-appearing. No oral swelling or signs of airway compromise.Does have some mild swelling to the buccal mucosa. No palpable fluctuance or abscess identified On exam. Patient is aware that she needs close dental follow-up. We will also start her on antibiotics. She is advised on strict return precautions for any worsening symptoms. Departure - Departure Disposition: Home, Self Care Clinical Impression: Dental infection Condition: Stable Instructions: ED Dental Abscess Facial Cellulitis Prescriptions: Amox/Clav 875/125 [Augmentin] 1 each PO Q12H #20 tablet Comments: You have a infection related to a bad tooth. I am starting on an antibiotic and have sent this prescription to [facility] in [place]. Please make sure to pick it up in the morning and continue taking it as prescribed.You also need close follow-up with a dentist for definitive care of this issue.Please call first thing Thursday morning to try and get the earliest available appointment. If you develop any worsening symptoms such as fever, increased swelling or pain please return to the emergency department. It is very important that you follow-up with a dentist. When it comes to dental problems like yours, the emergency department can only offer a short-term solution to your long-term problem. A couple of low cost options for dental care include: [facility] in [place], calls [phone] for an appointment Or [facility] in [place], call [phone] for an appointment. Discharge Date/Time: 11/01/22 22:51
[2022-11-01 22:52] VITALS: BP 130/87
== END 2022-11-01 22:51 | disposition home or self-care (01) ==
LOC: ED 21:15
DX: K04.7 Periapical abscess without sinus (principal)
CPT/HCPCS: 99282; 99283; A9270